=== PATIENT | male | born 1960 ===

== ENCOUNTER 2017-03-16 18:00 | Emergency (ER) | payer SELFPAY ==
--- NOTE | 2017-03-16 18:38 | C.PDOC ---
History Of Present Illness 56 y/o male presents to ED for evaluation of left sided chest pain radiating to left arm, and palpitations intermittently for the last 5 days. Pt states that he feels short of breath today.Pt also complaints of nausea, and vomiting since yesterday. Pt admits to drinking alcohol. Denies abdominal pain, cough, or any other complaints at this time. Time Seen by Provider: 03/16/17 18:02 Chief Complaint (Nursing): Chest Pain History Per: Patient History/Exam Limitations: no limitations Onset/Duration Of Symptoms: Days (5), Intermittent Episodes Current Symptoms Are (Timing): Still Present Quality: "Pain" Associated Symptoms: Nausea. denies: Diaphoresis, Syncope Modifying Factors: None Exacerbating Factors: None Alleviating Factors: None Recent travel outside of the [place]: No Additional History Per: Patient Past Medical History Reviewed: Historical Data, Nursing Documentation, Vital Signs Vital Signs: Last Vital Signs Temp 99.9 F H 03/17/17 00:28 Pulse 115 H 03/17/17 00:28 Resp 24 03/17/17 00:28 BP 124/72 03/17/17 00:28 Pulse Ox 94 L 03/17/17 00:28 Family History: States: Unknown Family Hx - Social History Hx Alcohol Use: Yes Hx Substance Use: No - Immunization History Hx Tetanus Toxoid Vaccination: No Hx Influenza Vaccination: No Hx Pneumococcal Vaccination: No Review Of Systems Except As Marked, All Systems Reviewed And Found Negative. Constitutional: Negative for: Fever, Chills Cardiovascular: Positive for: Chest Pain, Palpitations Respiratory: Positive for: Shortness of Breath. Negative for: Cough Gastrointestinal: Positive for: Nausea, Vomiting. Negative for: Abdominal Pain , Diarrhea Musculoskeletal: Positive for: Arm Pain (left) Neurological: Negative for: Weakness, Numbness, Headache, Dizziness Physical Exam - Physical Exam Appears: Non-toxic, No Acute Distress Skin: Normal Color, Warm, Dry Head: Atraumatic, Normacephalic Eye(s): bilateral: Normal Inspection Oral Mucosa: Moist Neck: Normal ROM, Supple Chest: Symmetrical, No Deformity, Tenderness (left anterior chest wall tenderness upon palpation) Cardiovascular: Rhythm Regular, No Murmur Respiratory: Normal Breath Sounds, No Rales, No Rhonchi, No Wheezing Gastrointestinal/Abdominal: Soft, No Tenderness Extremity: Normal ROM, No Pedal Edema Pulses: Left Radial: Normal, Right Radial: Normal Neurological/Psych: Oriented x3, Normal Speech ED Course And Treatment - Laboratory Results Result Diagrams: 03/16/17 19:25 03/16/17 19:25 ECG: Interpreted By Me, Viewed By Me ECG Rhythm: Sinus Tachycardia ECG Interpretation: No Acute Changes Interpretation Of ECG: Normal axis, normal intervals. No acute ischemia Rate From EC (bpm) O2 Sat by Pulse Oximetry: 94 - CT Scan/US CTA Other Rad Studies (CT/US): Read By Radiologist, Radiology Report Reviewed CT/US Interpretation: EXAM: CT Angiography Chest With Intravenous Contrast. EXAM DATE/TIME: 03/16/2017 8:17 PM. CLINICAL HISTORY: 56 years old, male; Pain; Chest pain; Type not specified; Additional info: Cp +ddimer. TECHNIQUE: Axial computed tomographic angiography images of the chest with intravenous contrast using. pulmonary embolism protocol. All CT scans at this facility use one or more dose reduction. techniques, viz.: automated exposure control; ma/ kV adjustment per patient size (including targeted. exams where dose is matched to indication; i.e. head); or iterative reconstruction technique. MIP reconstructed images were created and reviewed. Coronal and sagittal reformatted images were created and reviewed. CONTRAST: 100 mL of visipaque 320 administered intravenously. COMPARISON: There are no prior studies for comparison. FINDINGS: Artifacts: Motion artifact degrades image quality. Heart, aorta and Pulmonary arteries: Heart size is normal.There is trace fluid in pericardial. recesses.There is no aneurysm or dissection. There is perfusion of the 3 arch vessels. There are no. central pulmonary emboli. Patient motion limits evaluation of peripheral vessels. Lungs and pleural spaces: Trachea and main bronchi are patent.There is no pneumothorax. There. is apical pleural thickening. There is dependent atelectasis bilaterally. There is atelectasis at the right. base. There are small calcified granulomas bilaterally. There is segmental atelectasis in the left lower. lobe. There is a 1.6 x 1.8 cm mass in the area of atelectasis with with a partially calcified wall. There. is a smaller adjacent partially calcified mass 12 x 9 mm. There is patchy airspace disease at the left. base. There are no effusions. Mediastinum: The esophagus is unremarkable. There is a small hiatal hernia. There is shotty. mediastinal and hilar nodes. There is shotty subcarinal nodes. Thyroid: Thyroid is not optimally demonstrated. Bones/joints: There are degenerative changes in the osseus structures. Soft tissues: unremarkable. . Upper abdomen: There are no acute abnormalities in the visualized portion of the abdomen.There is. diffuse fatty infiltration liver. There is prominence of left and caudate lobes. Right kidney is not in the. flank. IMPRESSION: No aneurysm, dissection or central pulmonary embolus, limited evaluation of peripheral vessels. secondary to patient motion; prior granulomatous disease; segmental atelectasis and scarring in the. left lower lobe with partially calcified nodules suggesting prior inflammatory disease; patchy airspace. disease at the left base; fatty liver; possible absent right kidney. Additional findings as described above. Correlation with prior studies and chest x-rays suggested for further evaluation Medical Decision Making Medical Decision Makinam disc results and plan for admission with the pt, however he is adamant that he does not wish to be admitted. I disc my concern that it may be difficult for him to manage both his alcohol withdrawal and pneumonia at home by himself and that this may lead to worsening of disease and even disability or . he verbalized understanding of these risks. I believe he has the ability to make his own decisions at this time. Disposition - Disposition Disposition: AGAINST MEDICAL ADVICE Disposition Time: 01:10 Condition: GUARDED Forms: [facility] (Lao) - Clinical Impression Clinical Impression: Pneumonia, Alcohol withdrawal - Scribe Statement The provider has reviewed the documentation as recorded by the Venitaibcolin Kyle All medical record entries made by the Venitaibe were at my direction and personally dictated by me. I have reviewed the chart and agree that the record accurately reflects my personal performance of the history, physical exam, medical decision making, and the department course for this patient. I have also personally directed, reviewed, and agree with the discharge instructions and disposition.
[2017-03-16] MEDS ORDERED: Sodium Chloride 0.9% 1,000 ML IV ONE (18:40)
[2017-03-16] MEDS ORDERED: Sodium Chloride 0.9% 1,000 ML ONE (19:07)
[2017-03-16 19:28] LABS: BASO % 0.3 % (0.0-2.0); EOS % 0.3 % (0.0-4.0); HEMATOCRIT 43.9 % (35.0-51.0); LYMPH # 1.7 K/uL (1.0-4.3); LYMPH % 13.4 % (20.0-40.0); MEAN CORPUSCULAR HEMOGLOBIN 29.1 pg (27.0-31.0); MEAN CORPUSCULAR HGB CONC 34.3 g/dL (33.0-37.0); MEAN PLATELET VOLUME 8.7 fL (7.2-11.7); MONO # 1.6 K/uL (0.0-0.8); MONO % 12.4 % (0.0-10.0); RED CELL DISTRIBUTION WIDTH 13.9 % (11.5-14.5); WHITE BLOOD COUNT 12.8 K/uL (4.8-10.8)
[2017-03-16 19:42] LABS: ALB/GLOB RATIO 1.3 (1.0-2.1); ALCOHOL SERUM 241 mg/dl (0-10); ALKALINE PHOSPHATASE 79 U/L (38-126); ALT/SGPT 96 U/L (21-72); AST/SGOT 66 U/L (17-59); BILIRUBIN,TOTAL 0.9 mg/dL (0.2-1.3); BLOOD UREA NITROGEN 7 mg/dL (9-20); CARBON DIOXIDE 22 mmol/L (22-30); CHLORIDE 97 mmol/L (98-107); GFR AFRICAN-AMERICAN > 60; GLUCOSE,RANDOM 90 mg/dL (75-110); POTASSIUM 3.3 mmol/L (3.6-5.2); SODIUM 135 mmol/L (132-148)
[2017-03-16] MEDS ORDERED: Iodixanol 320 mg/ml 150 ml Bottle IV ONE (20:51)
--- NOTE | 2017-03-16 22:47 | CT ---
EXAM: CT Angiography Chest With Intravenous Contrast EXAM DATE/TIME: 03/16/2017 8:17 PM CLINICAL HISTORY: 56 years old, male; Pain; Chest pain; Type not specified; Additional info: Cp +ddimer TECHNIQUE: Axial computed tomographic angiography images of the chest with intravenous contrast using pulmonary embolism protocol. All CT scans at this facility use one or more dose reduction techniques, viz.: automated exposure control; ma/kV adjustment per patient size (including targeted exams where dose is matched to indication; i.e. head); or iterative reconstruction technique. MIP reconstructed images were created and reviewed. Coronal and sagittal reformatted images were created and reviewed. CONTRAST: 100 mL of visipaque 320 administered intravenously. COMPARISON: There are no prior studies for comparison. FINDINGS: Artifacts: Motion artifact degrades image quality. Heart, aorta and Pulmonary arteries: Heart size is normal.There is trace fluid in pericardial recesses.There is no aneurysm or dissection. There is perfusion of the 3 arch vessels. There are no central pulmonary emboli. Patient motion limits evaluation of peripheral vessels. Lungs and pleural spaces: Trachea and main bronchi are patent.There is no pneumothorax. There is apical pleural thickening. There is dependent atelectasis bilaterally. There is atelectasis at the right base. There are small calcified granulomas bilaterally. There is segmental atelectasis in the left lower lobe. There is a 1.6 x 1.8 cm mass in the area of atelectasis with with a partially calcified wall. There is a smaller adjacent partially calcified mass 12 x 9 mm. There is patchy airspace disease at the left base. There are no effusions. Mediastinum: The esophagus is unremarkable. There is a small hiatal hernia. There is shotty mediastinal and hilar nodes. There is shotty subcarinal nodes. Thyroid: Thyroid is not optimally demonstrated. Bones/joints: There are degenerative changes in the osseus structures. Soft tissues: unremarkable . Upper abdomen: There are no acute abnormalities in the visualized portion of the abdomen.There is diffuse fatty infiltration liver. There is prominence of left and caudate lobes. Right kidney is not in the flank. IMPRESSION: No aneurysm, dissection or central pulmonary embolus, limited evaluation of peripheral vessels secondary to patient motion; prior granulomatous disease; segmental atelectasis and scarring in the left lower lobe with partially calcified nodules suggesting prior inflammatory disease; patchy airspace disease at the left base; fatty liver; possible absent right kidney Additional findings as described above. Correlation with prior studies and chest x-rays suggested for further evaluation
[2017-03-16] MEDS ORDERED: Lactated Ringer's 1,000 ML IV ONE (22:53)
[2017-03-16] MEDS ORDERED: Azithromycin 500 MG in Sodium Chloride 0.9% 250 ML IVPB STA (22:55)
[2017-03-16] MEDS ORDERED: Moxifloxacin IV 400mg/250ml NS 400 MG/250 ML BAG IVPB ONE ×2 (22:56→23:08)
[2017-03-16] MEDS ORDERED: Lactated Ringer's 1,000 ML ONE (23:08)
[2017-03-17 00:05] VITALS: O2SAT 94
[2017-03-17 00:29] VITALS: BP 124/72; PULSE 115; RESP 24; TEMP 99.9
--- NOTE | 2017-03-17 07:42 | RAD ---
HISTORY: Chest pain COMPARISON: No prior. TECHNIQUE: Chest PA and lateral FINDINGS: LUNGS: No active pulmonary disease. PLEURA: No significant pleural effusion identified. No pneumothorax apparent. CARDIOVASCULAR: Normal. OSSEOUS STRUCTURES: No significant abnormalities. VISUALIZED UPPER ABDOMEN: Normal. OTHER FINDINGS: None. IMPRESSION: No active disease.
--- NOTE | 2017-03-19 12:05 | CARD ---
APPROVED REPORT EKG Measurement Heart [id number] <Conclusion> Sinus tachycardia Possible Left atrial enlargement Borderline ECG
== END 2017-03-17 01:21 | disposition left against medical advice (07) ==
LOC: C.ER 18:00
DX: J18.9 Pneumonia, unspecified organism (principal); F10.239 Alcohol dependence with withdrawal, unspecified
CPT/HCPCS: 71020; 71275; 80053; 83690; 84484; 85025; 85378; 87040; 87804; 96361; 96365; 96366; 99285; G0480; J2280; J7040; J7120; Q9967